=== PATIENT | female | born 1975 | race Caucasian/White ===

== ENCOUNTER 2020-11-07 08:29 | Outpatient (CLI) | payer OTHER, SELFPAY ==
--- NOTE | 2020-11-07 08:52 | US_ITS ---
WS: [id number] LEFT DIGITAL MAMMOGRAPHY WITH CAD CLINICAL INFORMATION: ABNORMAL MAMMOGRA COMPARISON: Outside mammogram September 20, 2020 and September 21, 2019 TECHNIQUE: 4 views of the left breast were obtained. FINDINGS: The left breast is composed of heterogeneous fibroglandular density tissue, which can limit the detec tion of small underlying mass lesions. Asymmetric nodular breast tissue upper outer left breast is un changed with spot compression views. Ultrasound is pending. Scattered incidental punctate calcificati ons. ULTRASOUND BREAST LEFT TECHNIQUE: Ultrasound left breast focused area of concern. CLINICAL INFORMATION: ABNORMAL MAMMOGRAM FINDINGS: Ultrasound left breast upper-outer quadrant. Several small incidental breast cysts upper-outer quadra nt the largest measuring 9.6 x 2.6 mm. Incidental intramammary lymph nodes at the 2 and 3 o'clock pos itions with normal fatty hilum. No suspicious findings. No suspicious lesions to target for biopsy. US/US breast LT limited* [id number] IMPRESSION: BI-RADS: 2-Benign FOLLOW UP: 1 Year Follow-up Recommend return to annual screening mammography.
== END 2020-11-07 08:30 | disposition home or self-care (01) ==
PROVIDERS: PCP Nurse Practitioner Family; Visit Provider Nurse Practitioner Family
DX: R92.8 Other abnormal and inconclusive findings on diagnostic imaging of breast (principal); N60.02 Solitary cyst of left breast
CPT/HCPCS: 76642; 77065

== ENCOUNTER 2023-02-28 10:08 | Outpatient (CLI) | payer OTHER, SELFPAY ==
--- NOTE | 2023-02-28 10:18 | MM_ITS ---
WS: [id number] BILATERAL SCREENING DIGITAL TOMOSYNTHESIS MAMMOGRAM WITH CAD HISTORY: SCREENING COMPARISON: 11/07/2020, 09/20/2020, 09/21/2019 Bilateral CC and MLO views with tomosynthesis and synthetic mammography submitted. Computer aided det ection analyzed. Breast composition: The breasts are heterogeneously dense, which may obscure small masses. No suspici ous masses, microcalcifications or architectural distortion. Bilateral benign scattered calcification s in each breast. IMPRESSION: MM/[place] [id number] BI-RADS: 2-Benign FOLLOW UP: 1 Year Follow-up
== END 2023-02-28 10:09 | disposition home or self-care (01) ==
LOC: RAD 10:08
PROVIDERS: PCP Nurse Practitioner Family; Visit Provider Nurse Practitioner Family
DX: Z12.31 Encounter for screening mammogram for malignant neoplasm of breast (principal)
CPT/HCPCS: 77063; 77067

== ENCOUNTER 2023-10-29 06:23 | Day surgery (SDC) | payer MEDICAID, SELFPAY ==
[2023-10-29 06:34] VITALS: BP 116/88; PULSE 88; RESP 16; TEMP 36.3; O2SAT 97; BMI 31.1
[2023-10-29 06:50] LABS: OR HCG Qualitative Urine Negative (Negative)
--- NOTE | 2023-10-29 06:56 | ANES.PREANE2 ---
Pre-Anesthetic Assessment Height/Weight: Height 1.73 m Weight 92.986 kg Temp Pulse Resp BP Pulse Ox O2 Del Method 97.3 F L 88 16 116/88 97 Room Air 10/29/23 06:34 10/29/23 06:34 10/29/23 06:34 10/29/23 06:34 10/29/23 06:34 10/29/23 06:34 Preop Diagnosis: screening Operation Date: 10/29/23 07:30 Proposed Procedures p Colonoscopy 56911, G0105, Z12.11, Z80.0(Not Applicable) - Shan Ramirez DO Familial anesthetic complications: none Was Beta Danita taken within 24 hours: N/A Was Clonidine taken within 24 hours: N/A Last intake: Intake Last Liquid Date 10/28/23 Last Liquid Time 22:30 Last Solid Date 10/27/23 Last Solid Time 18:30 Social Alcohol (ocassional) and No tobacco Exam alert, oriented x 3, clear to auscultation bilaterally and regular rate & rhythm Airway Submandibular: within normal limits Cervical ROM: within normal limits Mallampati: Class I Dentition: chipped (multiple) and full Pulmonary None reported CV/HEM None reported None reported Hepatic None reported GI None reported Metabolic None reported Musc/skel Osteoarthritis/DJD Neuropsych Headache (migraines) Anesthetic Plan ASA status: 2 Anesthesia: MAC Risk of > 500 ml blood loss (7ml/kg in children): No Medications/Allergies Home Medications Medication Instructions Recorded Confirmed Last Taken Type black cohosh root extract 2.5 mg 2.5 mg PO DAILY 09/08/23 10/29/23 10/28/23 History tablet cetirizine 10 mg tablet (All Day 10 mg PO DAILY PRN sneezing 09/08/23 10/29/23 10/28/23 History Allergy (cetirizine)) cranberry 500 mg capsule 500 mg PO ONCE 09/08/23 10/29/23 10/28/23 History turmeric 400 mg capsule 400 mg PO DAILY 09/08/23 10/29/23 10/28/23 History lactobacillus combination no.4 3 3,000 mmu cells PO DAILY 10/27/23 10/29/23 10/28/23 History billion cell capsule (Probiotic) Allergies Allergy/AdvReac Type Severity Reaction Status Date / Time aspirin Allergy Severe ADR-Vomitin Verified 09/08/23 13:24 g [facility] Anesthesia Medical History (Updated 09/08/23 @ 14:03 by Shan Ramirez DO) Family history of colon cancer Family History Mother Ovarian cancer Breast cancer Colon cancer Social History Smoking and tobacco/nicotine status: never used tobacco/nicotine Data Anesthesia Cardiac Studies: No Data to Display
[2023-10-29] MEDS: sodium chloride 0.9% 1,000 ML 30 ML IV (06:57)
--- NOTE | 2023-10-29 07:25 | PM.HP ---
Providers/Chief Complaint Primary Care Provider: NORMA Asif Chief Complaint: Z12.11 History of Present Illness Xiomara Blanton is a 48 year old female Review of Systems General: Reports: 10 or more systems reviewed and unremarkable except in HPI and below Medications/Allergies Home Medications Medication Instructions Recorded Confirmed Last Taken Type black cohosh root extract 2.5 mg 2.5 mg PO DAILY 09/08/23 10/29/23 10/28/23 History tablet cetirizine 10 mg tablet (All Day 10 mg PO DAILY PRN sneezing 09/08/23 10/29/23 10/28/23 History Allergy (cetirizine)) cranberry 500 mg capsule 500 mg PO ONCE 09/08/23 10/29/23 10/28/23 History turmeric 400 mg capsule 400 mg PO DAILY 09/08/23 10/29/23 10/28/23 History lactobacillus combination no.4 3 3,000 mmu cells PO DAILY 10/27/23 10/29/23 10/28/23 History billion cell capsule (Probiotic) Allergies Allergy/AdvReac Type Severity Reaction Status Date / Time aspirin Allergy Severe ADR-Vomitin Verified 09/08/23 13:24 g PFSH Acute PFSH: Medical History (Updated 09/08/23 @ 14:03 by Shan Ramirez DO) Family history of colon cancer Family History Mother Ovarian cancer Breast cancer Colon cancer Social History Smoking and tobacco/nicotine status: never used tobacco/nicotine Vitals/I&O/Wt Last Vital Signs Temp 97.3 F L 10/29/23 06:34 Pulse 88 10/29/23 06:34 Resp 16 10/29/23 06:34 BP 116/88 10/29/23 06:34 Pulse Ox 97 10/29/23 06:34 O2 Del Method Room Air 10/29/23 06:34 Weight last 48 hrs Weight 205 lb A&P Assessment and plan (1) Family history of colon cancer: Plan Screening colonoscopy Attestations Medical Necessity Statement*: Home Coding Level of Care Code Acute Code for Chg Fwd Diagnoses Family history of colon cancer Z80.0
[2023-10-29 07:43] VITALS: BP 101/72; PULSE 78; RESP 12; TEMP 36.5; O2SAT 94
[2023-10-29 08:00] VITALS: BP 109/77; PULSE 74; RESP 18; O2SAT 94
--- NOTE | 2023-10-29 08:20 | ANE.PACU2 ---
Inpatient post-anesthesia follow up: Airway intact: Yes Vital signs: Temperature 97.7 F Pulse Rate 74 Respiratory Rate 18 Blood Pressure 109/77 Pulse Oximetry 94 Oxygen Delivery Me thod Room Air Oxygen Flow Rate 3 Fraction of Inspir ed Oxygen Hydration adequate: Yes Nausea and vomiting: No Pain level: 1 Mental status: Baseline
== END 2023-10-29 08:20 | disposition home or self-care (01) ==
PROVIDERS: PCP Nurse Practitioner Family; Visit Provider Surgery
PROC: 0DJD8ZZ Inspection of Lower Intestinal Tract, Via Natural or Artificial Opening Endoscopic (ICD-10-PCS; CPT 45378; principal; 2023-10-29 07:30)
DX: Z12.11 Encounter for screening for malignant neoplasm of colon (principal); Z80.0 Family history of malignant neoplasm of digestive organs
CPT/HCPCS: 45378; 81025; J2704; J7030

== ENCOUNTER 2024-04-09 10:29 | Outpatient (CLI) | payer MEDICAID, SELFPAY ==
--- NOTE | 2024-04-09 10:30 | MM_ITS ---
WS: [id number] BILATERAL SCREENING DIGITAL TOMOSYNTHESIS MAMMOGRAM WITH CAD HISTORY: SCREENING COMPARISON: 02/28/2023, 11/07/2020 Bilateral CC and MLO views with tomosynthesis and synthetic mammography submitted. Computer aided det ection analyzed. Breast composition: The breasts are heterogeneously dense, which may obscure small masses. No suspici ous masses, microcalcifications or architectural distortion. Scattered bilateral calcifications are s table. MM/MM scr BI tomosynthesis [id number] IMPRESSION: BI-RADS: 2 - Benign FOLLOW UP: 1 Year Follow-up
== END 2024-04-09 10:30 | disposition home or self-care (01) ==
LOC: RAD 10:30
PROVIDERS: PCP Nurse Practitioner Family; Visit Provider Nurse Practitioner Family
DX: Z12.31 Encounter for screening mammogram for malignant neoplasm of breast (principal); R92.333 Mammographic heterogeneous density, bilateral breasts; R92.1 Mammographic calcification found on diagnostic imaging of breast
CPT/HCPCS: 77063; 77067